=== PATIENT | male | born 1950 | race Caucasian/White ===

== ENCOUNTER 2019-01-26 09:17 | Observation (INO) | payer MEDICARE, BC ==
[~2019-01-26] VITALS: Ht 177.8 cm; Wt 127.0 kg
[~2019-01-26 09:17] MED LIST: ALTACE10 MG PO; BAYER ASPIRIN325 MG PO; CHROMIUM PICO200 MC1 PO; CO Q-1030 MG PO; FISH OIL 1,2001 CAP PO; K-DUR20 MEQ PO; LASIX40 MG PO; MELATONIN 3 MG1 TAB PO; NORVASC10 MG PO; PLAVIX75 MG PO
[2019-01-26 09:59] LABS: BASOPHILS 0.5 % (0-2); EOSINOPHILS 3.3 % (0-7); HEMATOCRIT 46.3 % (42.0-54.0); HEMOGLOBIN 16.1 g/dL (13.5-17.5); IMMATURE GRANULOCYTES 0.5 % (0-5); LYMPHOCYTES 17.9 % (15-50); MCH 31.1 pg (26.0-34.0); MCHC 34.8 g/dL (31.0-37.0); MCV 89.6 fL (80.0-100.0); MEAN PLATELET VOLUME 10.1 fL (7.4-10.4); MONOCYTES 11.6 % (2-11); NEUTROPHILS 66.2 % (40-80); PLATELET COUNT 156 10x3/uL (130-400); RBC 5.17 10x6/uL (4.20-6.10); RDW 13.6 % (11.5-14.5); WBC 6.6 10x3/uL (4.8-10.8)
[2019-01-26 10:16] LABS: ALBUMIN 3.7 g/dL (3.4-5.0); ALKALINE PHOSPHATASE 77 U/L (46-116); ALT (SGPT) 52 U/L (10-68); BILIRUBIN - TOTAL 0.84 mg/dL (0.2-1.3); CALC OSMOLALITY 288 mosm/kg (275-300); CALCIUM 8.7 mg/dL (8.5-10.1); CARBON DIOXIDE 27.2 mmol/L (21.0-32.0); CHLORIDE - SERUM 105 mmol/L (98-107); GLUCOSE 141 mg/dL (74-106); LIPASE 70 U/L (73-393); POTASSIUM - SERUM 3.7 mmol/L (3.5-5.1); PROTEIN - SERUM 7.6 g/dL (6.4-8.2); SODIUM 143 mmol/L (136-145); UREA NITROGEN 18 mg/dL (7-18); eGFR NON AFRICAN AMERICAN 79 mL/min (90-120)
--- NOTE | 2019-01-26 12:52 | NUR ---
PATIENT HAD BM IN BEDSIDE TOILET, LARGE AMOUNT OF BROWN LIQUID AND NUMEROUS "LUMPS" OF BROWN COLORED STOOL NOTED.
--- NOTE | 2019-01-26 13:42 | NUR ---
PT STATED HE HAD USED RESTROOM AND WAS ABLE TO MOVE SOME STOOL BUT NOW IS ALSO HAVING PAIN WITH URINATION, PT SPOUSE INQUIRED ON CT THAT WAS MENTIONED IN ER, NO CT ORDER SEEN ON PT CHART, CALLED DR SANCHEZ
[2019-01-26 13:59] VITALS: BP 180/90; BMI 40.2
[2019-01-26 14:54] LABS: APPEARANCE CLEAR (CLEAR); COLOR DK YELLOW (YELLOW); NITRITE NEGATIVE (NEGATIVE); PROTEIN TRACE mg/dL (NEGATIVE)
[2019-01-26 14:55] LABS: BILIRUBIN NEGATIVE (NEGATIVE); GLUCOSE NEGATIVE (NEGATIVE); KETONE NEGATIVE (NEGATIVE); UROBILINOGEN NORMAL (NORMAL)
[2019-01-26 14:56] LABS: BACTERIA FEW /hpf (NONE SEEN); WHITE CELLS - URINE 0-5 /hpf (0-5)
[2019-01-26 16:30] VITALS: BP 105/63; BP 156/80
--- NOTE | 2019-01-26 20:00 | NUR ---
ASSESSMENT SPER FLOWSHEET. JESSICA ALVARADO PATENT LEFT HAND . ALERT/ORIENTED X3 SPOUSE IN ROOM. REFUSES SCD'S. VOIDS IN URINAL STRAINING URINE NO STONES SEEN.
[2019-01-26 21:05] VITALS: BP 139/65
--- NOTE | 2019-01-26 21:30 | NUR ---
MEDS GIVEN PER MAR.
--- NOTE | 2019-01-27 | NUR ---
EYES CLOSED RESPIRATIONS WITH EASE AND UNLABORED.
--- NOTE | 2019-01-27 03:14 | NUR ---
RESTING QUIETLY DENIES NEEDS. SR UP X2 CALL LIGHT WITHIN REACH.
[2019-01-27 04:43] VITALS: BP 148/74
[2019-01-27 07:12] LABS: BASOPHILS 0.2 % (0-2); EOSINOPHILS 0.6 % (0-7); HEMATOCRIT 42.3 % (42.0-54.0); HEMOGLOBIN 14.6 g/dL (13.5-17.5); IMMATURE GRANULOCYTES 0.3 % (0-5); LYMPHOCYTES 15.7 % (15-50); MCH 30.8 pg (26.0-34.0); MCHC 34.5 g/dL (31.0-37.0); MCV 89.2 fL (80.0-100.0); MEAN PLATELET VOLUME 10.3 fL (7.4-10.4); MONOCYTES 12.7 % (2-11); NEUTROPHILS 70.5 % (40-80); PLATELET COUNT 154 10x3/uL (130-400); RBC 4.74 10x6/uL (4.20-6.10); RDW 13.9 % (11.5-14.5)
[2019-01-27 07:16] LABS: WBC 9.5 10x3/uL (4.8-10.8)
[2019-01-27 07:34] LABS: ANION GAP 11.8 mmol/L (8-16); CALCIUM 7.9 mg/dL (8.5-10.1); CARBON DIOXIDE 28.3 mmol/L (21.0-32.0); CREATININE - SERUM 1.2 mg/dL (0.6-1.3)
--- NOTE | 2019-01-27 07:39 | NUR ---
PT LYING IN BED STATED HE HAS BEEN STRAINING URINE ALL NIGHT AND HOUSEKEEPING THREW STRAINER AWAY THIS MORNING, ADVISED I WILL GET HIM ANOTHER STRAINER, PT STATED FELT FINE LAST NIGHT AND THEN THIS MORNING HE IS STARTING TO HAVE RIGHT FLANK PAIN SLOWLY GETTING WORSE, ADVISED I WILL ADMINISTER PRN PAIN MEDICATION WITH MORNING MEDS AND THAT IF HE DOES HAVE A KIDNEY STONE HE WILL START HAVING PAIN WHEN IT STARTS TO MOVE, NO OTHER NEEDS AT THIS TIME, CONTINUE WITH PLAN OF CARE
[2019-01-27 07:51] LABS: POTASSIUM - SERUM 3.1 mmol/L (3.5-5.1)
[2019-01-27 08:55] VITALS: BP 147/74
[2019-01-27 12:05] VITALS: Ht 177.8 cm; Wt 127.0 kg
[2019-01-27 13:38] VITALS: BP 140/81
--- NOTE | 2019-01-27 14:44 | NUR ---
I have reviewed this patient and I concur with the Shift Assessment completed by the Licensed Practical Nurse today this shift.
--- NOTE | 2019-01-27 14:53 | NUR ---
PT DC HOME, WENT OVER DC PAPERWORK WITH PT AND SPOUSE, ALL QUESTIONS ANSWERED
== END 2019-01-27 14:58 | disposition home or self-care (01) ==
LOC: D.ER 09:17 → OBSVTIME 10:48 → D.EDHOLD 10:48 → D.MS 11:34
PROVIDERS: Emergency Medicine; ADMIT Family Medicine; ATTEND Family Medicine
DX: K59.00 Constipation, unspecified (principal); I10 Essential (primary) hypertension; Z95.0 Presence of cardiac pacemaker; Z85.79 Personal history of other malignant neoplasms of lymphoid, hematopoietic and related tissues; R31.29 Other microscopic hematuria; N20.2 Calculus of kidney with calculus of ureter